=== PATIENT | male | born 1955 | race Caucasian/White ===

== ENCOUNTER 2023-08-15 13:19 | Emergency (ER) | payer MEDICARE, SELFPAY ==
[2023-08-15 13:19] VITALS: BP 126/67; PULSE 63; RESP 16; O2SAT 97
[2023-08-15 13:21] VITALS: BP 159/82; PULSE 87; RESP 18; TEMP 36.4; O2SAT 100; BMI 28.0
--- NOTE | 2023-08-15 14:38 | NURSING ---
NO OLD EKGS
[2023-08-15 15:16] LABS: Anion Gap 1 (5-15); BUN 25 mg/dL (7-18); Chloride 109 mmol/L (98-107); Creatinine, Serum 1.47 mg/dL (0.70-1.30); EST Glomerular Filtration Rate 51 mL/min (>60); Est Glom Filt Rate - Afr Amer 61 mL/min (>60); Glucose 104 mg/dL (74-106); Magnesium 2.4 mg/dL (1.6-2.6); Sodium Level 137 mmol/L (136-145)
--- NOTE | 2023-08-15 15:54 | EDS_ITS ---
HPI History of Present Illness Chief Complaint: Abn Labs Informant: patient and spouse/S.O. Narrative Narrative: 68-year-old male presenting to the emergency room after being referred here by primary care for elevated potassium. Patient states that yesterday had blood work drawn. He received a call last night noting that his potassium was 6.4. He had it redrawn this morning it was 5.9. Yesterday's blood work shows a creatinine 1.56 CO2 of 23 anion gap 10 glucose 133 and hemoglobin A1c of 6.3. He has not a diabetic. He has had a prior nephrectomy due to renal cell cancer. He states he does not feel any better or worse than normal. He currently has n o complaints. PFSH PFSH Allergy/AdvReac Type Severity Reaction Status Date / Time pseudoephedrine Allergy Mild Rash Verified 08/15/23 13:21 [From [facility]] ROS ROS ED Constitutional Constitutional ED: Denies chills or weight loss Eyes Eyes: Denies change in vision or diplopia ENT ENT ED: Denies ear pain, rhinorrhea or sore throat Cardiovascular Cardiovascular: Denies chest pain, orthopnea, palpitations or racing heartbeat Respiratory/Chest Respiratory/Chest: Denies cough, dyspnea or orthopnea Gastrointestinal Gastrointestinal: Denies abdominal pain, diarrhea, nausea or vomiting Genitourinary Genitourinary ED: Denies dysuria, hematuria or urinary frequency Musculoskeletal Musculoskeletal: Denies arthralgias or myalgias Integumentary Denies abscess or rash Neurologic Neurologic: Denies headache(s) or weakness Psychiatric Psychiatric: Denies anxiety, depression, suicidal ideation or suicidal thoughts Endocrine Endocrinology: Denies polydipsia, polyphagia or polyuria Allergic/Immunologic Allergic/Immunologic ED: Denies mouth swelling, tongue swelling or urticaria EXAM Physical Exam Const Vital Signs: 08/15/23 13:21 Temperature 97.6 F L Temperature Source Temporal Pulse Rate 87 Respiratory Rate 18 Blood Pressure 159/82 H Blood Pressure Mean 107 Pulse Ox 100 Oxygen Delivery Method Room Air Positive well nourished and well developed General Appearance ED: well developed HEENT Reports normocephalic, head/scalp atraumatic and moist mucous membranes Eyes PERRL and EOMs intact bilaterally Neck no lymphadenopathy, supple and no JVD Resp normal respiratory effort and clear to auscultation bilaterally Cardio regular rate, regular rhythm and no murmurs GI normal to inspection, nondistended, normoactive bowel sounds and non-tender Palpation: soft Back/Spine no CVA tenderness and normal ROM Extremity normal to inspection General Extremety ED: Negative for edema General Extremity: Negative for edema Neuro oriented x3 and CN's II-XII intact bilaterally Sensorium / Orientation: alert Motor Exam: strength 5/5 throughout Psych mental status grossly normal Mood & Affect: Negative for depressed or tearful Skin no rashes or lesions noted and no wounds MDM MDM MDM Narrative Medical decision making narrative: BMP was drawn. Creatinine 1.47 with a BUN of 25. Potassium is 5 magnesium is 2.4. At this point I think the patient can be discharged home. Encouraged to drink adequate amounts of fluids. Would recommend follow-up with his doctors. Lab Data Attestation: I reviewed the patient's lab results. Labs: Laboratory Results - last 24 hr 08/15/23 14:50 Sodium 137 Potassium 5.0 Chloride 109 H Carbon Dioxide 27.0 Anion Gap 1 L BUN 25 H Creatinine 1.47 H Estim Creat Clear Calc 48.10 Est GFR (MDRD) Af Amer 61 Est GFR (MDRD) Non-Af 51 L BUN/Creatinine Ratio 17.0 Glucose 104 Calcium 9.0 Magnesium 2.4 EKG Initial EKG: Attestation: I personally reviewed and interpreted this EKG as follows: Comments: Sinus rhythm with a first-degree AV block. Ventricular rate of 69 bpm Discharge Plan Triage Chief Complaint: Abn Labs ED Provider: Brent Isaac Dx/Rx/DC Orders Clinical Impression: Chronic kidney disease, Hyperkalemia Instructions: ED Chronic Kidney Disease (CKD) Primary Care Provider: Dax Powell Referrals: Dax Powell MD [Primary Care Provider] - 1 Week Disposition Disposition: Home, Self Care
[2023-08-15 16:00] VITALS: BP 128/71; PULSE 69; RESP 16; O2SAT 97
[2023-08-15 16:04] VITALS: BP 113/63; PULSE 81; RESP 16; O2SAT 98
== END 2023-08-15 16:09 | disposition home or self-care (01) ==
PROVIDERS: Emergency Provider Emergency Medicine; PCP Family Medicine; Visit Provider Emergency Medicine
DX: N18.9 Chronic kidney disease, unspecified (principal); E87.5 Hyperkalemia
CPT/HCPCS: 36415; 80048; 83735; 84132; 93005; 99283; A4216

== ENCOUNTER → 2023-08-15 | Outpatient (CLI) | payer MEDICARE, SELFPAY ==
[2023-08-15 09:03] LABS: Potassium 5.9 mmol/L (3.5-5.1)
== END | disposition home or self-care (01) ==
PROVIDERS: PCP Family Medicine; Referring Provider Family Medicine; Visit Provider Family Medicine
DX: E87.5 Hyperkalemia (principal)
CPT/HCPCS: 36415; 84132